=== PATIENT | female | born 1950 | race Two or more races ===

== ENCOUNTER 2020-11-06 09:07 | Emergency (ER) | payer OTHER ==
[~2020-11-06] VITALS: Ht 154.9 cm; Wt 77.1 kg
[2020-11-06] MEDS ORDERED: SYNTHROID50 MCG (09:14)
[2020-11-06] MEDS ORDERED: NORVASC5 MG (09:15)
[2020-11-06] MEDS ORDERED: COZAAR25 MG (09:18)
== END 2020-11-06 17:00 | disposition home or self-care (01) ==
LOC: ER 09:07
DX: M47.892 Other spondylosis, cervical region (principal); J22 Unspecified acute lower respiratory infection; M54.89 Other dorsalgia; Z03.818 Encounter for observation for suspected exposure to other biological agents ruled out; R06.2 Wheezing

== ENCOUNTER 2022-05-11 08:39 | Emergency (ER) | payer OTHER ==
[~2022-05-11] VITALS: Ht 152.4 cm; Wt 76.2 kg
[~2022-05-11 08:39] MED LIST: COZAAR25 MG; NORVASC5 MG; SYNTHROID50 MCG
[2022-05-11] MEDS ORDERED: ZESTRIL2.5 MG (08:49)
[2022-05-11] MEDS ORDERED: GLUMETZA500 MG (08:49)
== END 2022-05-11 11:31 | disposition home or self-care (01) ==
LOC: ER 08:39
DX: R31.9 Hematuria, unspecified (principal); Z88.2 Allergy status to sulfonamides; R42 Dizziness and giddiness; E11.9 Type 2 diabetes mellitus without complications; Z79.899 Other long term (current) drug therapy; I10 Essential (primary) hypertension

== ENCOUNTER 2022-05-23 08:21 | Outpatient (CLI) | payer OTHER ==
[~2022-05-23 08:21] MED LIST changes: +GLUMETZA500 MG; +ZESTRIL2.5 MG
== END 2022-05-23 08:29 | disposition home or self-care (01) ==
LOC: TOM 08:21
PROVIDERS: ATTEND Internal Medicine Gastroenterology
DX: K56.600 Partial intestinal obstruction, unspecified as to cause (principal)

== ENCOUNTER 2023-07-29 09:18 | Outpatient (CLI) | payer OTHER | END 2023-07-29 09:23 | disposition home or self-care (01) | LOC: RAD 09:18 | DX: M54.2 Cervicalgia (principal) ==

== ENCOUNTER 2023-07-29 10:04 | Outpatient (CLI) | payer OTHER | END 2023-07-29 10:07 | disposition home or self-care (01) | LOC: LAB 10:04 | DX: N39.0 Urinary tract infection, site not specified (principal); Z88.2 Allergy status to sulfonamides ==

== ENCOUNTER 2024-01-12 10:01 | Outpatient (CLI) | payer OTHER | END 2024-01-12 10:10 | disposition home or self-care (01) | LOC: RAD 10:01 | DX: M25.561 Pain in right knee (principal) ==

== ENCOUNTER 2024-01-22 08:30 | Outpatient (CLI) | payer OTHER | END 2024-01-22 08:35 | disposition home or self-care (01) | LOC: MRI 08:30 | DX: M25.561 Pain in right knee (principal) | CPT/HCPCS: 73721 ==

== ENCOUNTER 2025-01-17 08:02 | Outpatient (CLI) | payer OTHER | END 2025-01-17 08:15 | disposition home or self-care (01) | LOC: RAD 08:02 | DX: M54.2 Cervicalgia (principal); N64.4 Mastodynia; Z12.31 Encounter for screening mammogram for malignant neoplasm of breast ==

== ENCOUNTER 2025-02-08 12:09 | Outpatient (CLI) | payer OTHER | END 2025-02-08 12:10 | disposition home or self-care (01) | LOC: NUCLEAR 12:09 | DX: M81.0 Age-related osteoporosis without current pathological fracture (principal) ==